=== PATIENT | male | born 1960 | race Caucasian/White ===

== ENCOUNTER → 2016-06-22 | Outpatient (CLI) | payer OTHER ==
[2016-06-22 07:15] LABS: LDL CHOLESTEROL,CALCULATED 100.8 mg/dL
[2016-06-22 07:45] LABS: ASPARTATE AMINO TRANSFERASE 14 IU/L (21-57); BILIRUBIN,TOTAL 0.4 mg/dL (0.3-1.2); BLOOD UREA NITROGEN 28 mg/dL (7-22); BUN/CREATININE RATIO 46.66 (6-20); CALCIUM 9.4 mg/dL (8.7-10.7); CHLORIDE 100 meq/L (98-112); CREATININE 0.6 mg/dL (0.70-1.50); EST GLOMERULAR FILTRATION > 60 (>60 ml/min/1.73m(2)); GLUCOSE 92 mg/dL (78-110); POTASSIUM 4.6 meq/L (3.8-5.2); SODIUM 135 meq/L (135-145); TOTAL PROTEIN 7.1 g/dL (6.1-8.0)
[2016-06-22 09:37] LABS: CREATININE, URINE 75.2 MG/DL (15-500)
[2016-06-22 10:10] LABS: HEMOGLOBIN A1C 7.49 % (4.2-6.0); MEAN BLOOD GLUCOSE (CALC) 163.417 mg/dL
== END ==
LOC: LAB 05:39
PROVIDERS: ATTEND Internal Medicine
DX: E11.9 Type 2 diabetes mellitus without complications (principal); Z79.4 Long term (current) use of insulin; I10 Essential (primary) hypertension; E78.5 Hyperlipidemia, unspecified; F17.210 Nicotine dependence, cigarettes, uncomplicated
CPT/HCPCS: 36415; 80053; 80061; 82043; 82550; 83036